=== PATIENT | female | born 1980 | race Caucasian/White ===

== ENCOUNTER 2024-05-10 09:38 | Outpatient (CLI) | payer BC, SELFPAY | END 2024-05-10 09:39 | disposition home or self-care (01) | LOC: LKVREF 09:39 | PROVIDERS: Visit Provider Physician Assistant | DX: N93.8 Other specified abnormal uterine and vaginal bleeding (principal) | CPT/HCPCS: 84443 ==

== ENCOUNTER 2024-05-18 09:38 | Outpatient (CLI) | payer BC, SELFPAY ==
--- NOTE | 2024-05-18 10:15 | CRLHL7_ITS ---
For Patients: As a result of the Century Cures Act, medical imaging exams and procedure reports are released immediately into your electronic medical record. You may view this report before your referring provider. If you have questions, please contact your health care provider. INDICATION: Abnormal uterine bleeding COMPARISON: none TECHNIQUE: 2D santiago scale and color Doppler images were acquired of the pelvis using a transabdominal and transvaginal approach. FINDINGS: Sonographic images demonstrate a normal size and smooth outer contour of the uterus. Uterus measures 7.7 cm in length by 4.1 cm in AP diameter by 5.1 cm in transverse dimension. Posterior uterine fibroid is present measuring 10 x 7 x 9 millimeters. The endometrial lining measures 17.9 mm in composite thickness. Hyperechoic structure associated with the endometrial measures 9 x 6 x 8 millimeters. The right ovary measures 3.1 x 1.9 x 1.7 cm in size and the left ovary measures 2.1 x 1.6 x 1.5 cm. The ovaries demonstrate normal arterial and venous blood flow on color Doppler analysis. There are no suspicious fluid collections within the cul-de-sac. Hypoechoic structure within the right ovary measures 1.4 x 1.3 x 1.6 cm. IMPRESSION: Endometrial thickness 17.9 millimeters. Possible endometrial polyp measuring 9 millimeters. Posterior uterine fibroid measures 1 cm. Hypoechoic structure within the right ovary measures 1.6 cm. Consider follow-up ultrasound in 6 months. Dictated by Heath Kee MD @ 05/18/2024 10:20:54 PM (Electronically Signed)
== END 2024-05-18 09:39 | disposition home or self-care (01) ==
PROVIDERS: Visit Provider Physician Assistant
DX: N93.8 Other specified abnormal uterine and vaginal bleeding (principal); R93.89 Abnormal findings on diagnostic imaging of other specified body structures; D25.9 Leiomyoma of uterus, unspecified
CPT/HCPCS: 76830; 76856

== ENCOUNTER 2024-06-17 06:01 | Day surgery (SDC) | payer BC, SELFPAY ==
[2024-06-17 06:32] VITALS: BP 118/65; PULSE 72; RESP 16; TEMP 37.2; O2SAT 100; BMI 22.5
[2024-06-17] MEDS: SODIUM CHLORIDE 0.9 % (FLUSH) 10 ML SYRINGE IVF (06:38)
[2024-06-17 06:48] LABS: Ur HCG Qualitative* Negative (Negative)
--- NOTE | 2024-06-17 07:27 | W.PM.H&PU ---
History & Physical Update History & Physical Update H&P Reviewed and patient assessed: No changes noted
[2024-06-17] MEDS: LIDOCAINE 1% MDV 20 ML INJECTION (07:30)
[2024-06-17 07:59] VITALS: BP 92/59; PULSE 76; RESP 12; TEMP 37.1; O2SAT 99
--- NOTE | 2024-06-17 08:01 | W.PM.GYNPROC ---
Procedure Note Date of procedure: 06/17/24 Will [facility] bill your pro fee for this procedure?: Yes Pre-op diagnosis: Menorrhagia Suspected endometrial polyp Post-op diagnosis: Menorrhagia Endometrial polyp Procedure: Hysteroscopy, polypectomy, dilation and curettage Anesthesia: MAC and local Complications: None Surgeon: Marbella Watkins MD Estimated blood loss (mL): 5 IV fluids (mL): 0 Urine Output (mL): 5 Pathology: specimen obtained, sent to pathology (endometrial curettings) Condition: stable Disposition: same day Findings: 1. On exam under anesthesia, vulva was normal in appearance, as was vagina and cervix. The uterus was of normal size and consistency, mobile, and slightly retroverted. There were no palpable adnexal masses. 2. Upon hysteroscopy, the endocervix was normal appearance. The endometrial cavity was normal in shape, and tubal ostia were normal in appearance. There was a polyp extending from the left lateral fundus approximately 1 cm in greatest dimension. Otherwise, the endometrium was thin and shaggy, consistent in appearance with menstrual endometrium. Saline deficit: 185 cc Procedure Description: Procedure in detail: Patient was taken to the operating room with IV running. She was positioned in dorsal lithotomy position with her legs fully supported in Yellofin stirrups. Monitored anesthesia care was administered. She was prepped and draped in the usual sterile fashion. Exam under anesthesia was performed for the above-noted findings. Speculum was inserted. Cervix visualized and grasped along the anterior lip with a single-tooth tenaculum. Paracervical block was performed with a total of 10 mL of 1% lidocaine. Cervix was serially dilated to accommodate the TRUCLEAR hysteroscope. This was assembled with saline inflow and outflow in place. The line was flushed of bubbles. The hysteroscope was advanced through the cervix into the endometrial cavity for the above noted findings. The tissue morcellator was then inserted through the operating channel. Window lock was performed. Under direct visualization, the endometrial cavity was circumferentially curetted with the tissue morcellator. The hysteroscope and morcellator were then removed from the uterus. Tenaculum was removed from the anterior lip of cervix. Hemostasis was noted. Patient tolerated procedure well. She was taken to recovery area in stable condition. Postoperative debrief was verbalized with OR staff, including a verification of pathology specimens to be sent as described above.
--- NOTE | 2024-06-17 08:01 | W.ANESCHARGE ---
Anesthesia Charges Start Date/Time Anesthesia Start Date: 06/17/24 Anesthesia Start Time: 07:19 Stop Date/Time Anesthesia Stop Date: 06/17/24 Anesthesia Stop Time: 08:02
[2024-06-17 08:15] VITALS: BP 100/36; PULSE 69; RESP 12; O2SAT 99
[2024-06-17 08:30] VITALS: BP 120/88; PULSE 75; RESP 14; O2SAT 97
[2024-06-17] MEDS: ACETAMINOPHEN 500 MG TABLET 1000 MG PO (08:36)
[2024-06-17 08:45] VITALS: BP 119/81; PULSE 73; RESP 14; O2SAT 98
--- NOTE | 2024-06-17 08:54 | W.ANESCHARGE ---
Anesthesia Charges Start Date/Time Anesthesia Start Date: 06/17/24 Anesthesia Start Time: 07:19 Stop Date/Time Anesthesia Stop Date: 06/17/24 Anesthesia Stop Time: 08:02
== END 2024-06-17 09:20 | disposition home or self-care (01) ==
PROVIDERS: Visit Provider Obstetrics & Gynecology
PROC: 0UDB8ZZ Extraction of Endometrium, Via Natural or Artificial Opening Endoscopic (ICD-10-PCS; CPT 58558; principal; 2024-06-17 07:15)
DX: N92.0 Excessive and frequent menstruation with regular cycle (principal); N84.0 Polyp of corpus uteri; N93.8 Other specified abnormal uterine and vaginal bleeding
CPT/HCPCS: 58558; 00952; 36415; 81025; 86850; 86900; 86901; 88305; J2003; A9270; C1782; J1100; J1885; J2250; J2405; J2704; J3010

== ENCOUNTER 2024-10-07 06:05 | Day surgery (SDC) | payer BC, SELFPAY ==
[2024-10-07] VITALS (19 sets, daily range): BP systolic 108–131; BP diastolic 62–85; PULSE 60–82; RESP 14–16; TEMP 36.6–37.3; O2SAT 95–100; BMI 20.3
[2024-10-07] MEDS: SODIUM CHLORIDE 0.9 % (FLUSH) 10 ML SYRINGE IVF (06:45)
[2024-10-07] MEDS: ACETAMINOPHEN 500 MG TABLET 1000 MG PO (06:45)
[2024-10-07] MEDS: SCOPOLAMINE 1 MG/3 DAY PATCH 1 PATCH TRANSDERMA (06:45)
[2024-10-07] MEDS: LACTATED RINGERS 1000 ML 1,000 ML 100 ML IV ×4 (06:45→11:15)
[2024-10-07] MEDS: GABAPENTIN 600 MG TABLET PO (06:45)
[2024-10-07 06:52] LABS: Hemoglobin* 11.7 gm/dL (12.0-16.0)
[2024-10-07 06:55] LABS: Ur HCG Qualitative* Negative (Negative)
[2024-10-07 07:12] LABS: Creatinine* 0.7 mg/dL (0.5-1.5); Est. Creatinine Clearance* 98.45; Estimated Glomerular Filt Rate 111 ml/min
[2024-10-07] MEDS: CEFAZOLIN 2 GM INJ IVP (07:30)
--- NOTE | 2024-10-07 07:59 | W.PM.NB ---
Nerve Block Nerve Block Time Seen by Provider: 07:30 Date Seen: 10/07/24 Type of block requested by surgeon for post-operative analgesia: TAP Side: bilateral Time out performed: Yes Verification of patient name: Yes Verification of date of : Yes Site marking: site marked Name of person performing procedure: Bogdan valdivia Assistants, if any: Rajinder James Continuous monitoring Was continuous monitoring of O2 sat, B/P, cardiac cath technologist, recorded every 15 minutes?: Yes Procedure Checklist: sterile prep, needles and gloves Ultrasound guided. Images saved: Yes Medications given in 5ml increments after negative aspiration: Marcaine %: 0.25 mL: 30 and Exparel mL: 10 Patient tolerated procedure well: Yes Block Charges Block Charge (with Pro Fee): TAP Bilateral Use of Ultrasound Machine for Block: Yes- US Guidance/pain block
--- NOTE | 2024-10-07 09:04 | P.ANES_ITS ---
Anesthesia Charges Start Date/Time Anesthesia Start Date: 10/07/24 Anesthesia Start Time: 07:17 Stop Date/Time Anesthesia Stop Date: 10/07/24 Anesthesia Stop Time: 10:12 Coding CPT Codes CPT Codes: ANESTH SURG LOWER ABDOMEN - 94661 ([id number]) P1 - NORMAL HEALTHY PATIENT, QK - OBSERVER GRAVITY PROSPECTING 2-4 CNCRNT ANES PROC, QX - ELECTRONIC INTELLIGENCE OFFICER SVSarah W/ MED DIRECTION
--- NOTE | 2024-10-07 09:04 | W.ANESCHARGE ---
Anesthesia Charges Start Date/Time Anesthesia Start Date: 10/07/24 Anesthesia Start Time: 07:17 Stop Date/Time Anesthesia Stop Date: 10/07/24 Anesthesia Stop Time: 10:12 Coding CPT Codes CPT Codes: ANESTH SURG LOWER ABDOMEN - 87295 ([id number]) P1 - NORMAL HEALTHY PATIENT, QK - WRAPPER OFF 2-4 CNCRNT ANES PROC, QX - PEARL DIVER SVSarah W/ MED DIRECTION
--- NOTE | 2024-10-07 09:12 | P.ANES_ITS ---
Anesthesia Charges Start Date/Time Anesthesia Start Date: 10/07/24 Anesthesia Start Time: 07:17 Stop Date/Time Anesthesia Stop Date: 10/07/24 Anesthesia Stop Time: 10:12 Coding CPT Codes CPT Codes: ANESTH SURG LOWER ABDOMEN - 35588 ([id number]) P1 - NORMAL HEALTHY PATIENT, QK - RN WOMEN SERVICES 2-4 CNCRNT ANES PROC, QX - BAND TIER SVSarah W/ MED DIRECTION
--- NOTE | 2024-10-07 09:12 | W.ANESCHARGE ---
Anesthesia Charges Start Date/Time Anesthesia Start Date: 10/07/24 Anesthesia Start Time: 07:17 Stop Date/Time Anesthesia Stop Date: 10/07/24 Anesthesia Stop Time: 10:12 Coding CPT Codes CPT Codes: ANESTH SURG LOWER ABDOMEN - 46568 ([id number]) P1 - NORMAL HEALTHY PATIENT, QK - RADIATION TECHNICIAN 2-4 CNCRNT ANES PROC, QX - CREATIVE SERVICES SPECIALIST SVSarah W/ MED DIRECTION
--- NOTE | 2024-10-07 11:41 | W.PM.H&PU ---
History & Physical Update History & Physical Update H&P Reviewed and patient assessed: No changes noted
--- NOTE | 2024-10-07 11:42 | P.GYNPRC_ITS ---
Procedure Note Date of procedure: 10/07/24 Will [facility] bill your pro fee for this procedure?: Yes Procedure Description: PREOPERATIVE DIAGNOSIS: Menorrhagia POSTOPERATIVE DIAGNOSIS: Same TITLE OF OPERATION: 1. Total laparoscopic hysterectomy with bilateral salpingectomy 2. Cystoscopy SURGEON: Marbella Watkins MD WESTERN TACK ASSEMBLY LINE WORKER: Teresa Hickman MD ANESTHESIA: General ESTIMATED BLOOD LOSS: 25 mL URINE OUTPUT: 100 mL FINDINGS: 1. Upon pelvic exam under anesthesia, the cervix and vagina were normal in appearance. Uterus was mobile and anteverted, of normal size and texture. There were no palpable adnexal masses. 2. Upon laparoscopy, survey of the upper abdomen revealed a normal appearance to the inferior edge of the liver and stomach. Bowels were grossly normal appearance, as was the appendix. Survey of the pelvis revealed normal appearance to the uterus. The left distal fallopian tube was adherent to the ovary, and the ovarian fossa, though free of adhesions, appeared irregular and scarred. Right tube tubes and bilateral ovaries were normal in appearance. The cul-de-sac and bladder reflection were normal in appearance. 3. Upon cystoscopy, performed after completion of hysterectomy, bilateral ureteral jets were noted and there were no abnormalities of the bladder mucosa. COMPLICATIONS: None PROCEDURE IN DETAIL: Patient was taken to the operating room with IV running. She received cefazolin in preoperative prophylaxis. She was positioned in dorsal lithotomy position with her legs fully supported in Yellofin stirrups. General anesthesia was administered. She was prepped and draped in the usual sterile fashion. Pelvic exam under anesthesia was performed for the above-noted findings. Speculum was inserted. Cervix visualized and grasped along its posterior lip with a single-tooth tenaculum. Cervix was dilated with Hegar dilators to accommodate the VCare uterine manipulator. A small-sized colpotomizer cup was selected. The tip of the uterine manipulator was inserted through the cervix into the uterine cavity and the balloon was inflated. The speculum was removed. The colpotomy cup was advanced, surrounding the cervix, and the proximal occluder was moved up along the shaft of the VCare and fixed in place. Melendez catheter was placed. Patient's legs were then placed in neutral position. Attention was turned to patient's abdomen. Infraumbilical area was infiltrated with a small amount of Marcaine. A 5 mm infraumbilical incision was made with a scalpel and carried down to the underlying layer of fascia with the hemostat. 5 mm camera was placed within the 5 mm Fios Kii trocar, and advanced under direct visualization through the anterior abdominal wall into the peritoneal cavity, while tenting up the anterior abdominal wall. The trocar was removed. The balloon was inflated, holding the port in place. Pneumoperitoneum was achieved. Survey of the abdomen and pelvis revealed the above-noted findings. Three additional port sites were created. The first was in the patient's left lower quadrant, just superomedial to the left ASIS. The second was a hand's breadth superior to and slightly medial to the first. The third was in the patient's right lower quadrant, just superomedial to the right ASIS. Initially, a 5 mm incision was made at each site, and after assuring that large vessels were out of harm's way, a 5 mm Fios Kii port was inserted at each site, under direct visualization and without complication. The balloon on each of the four ports was inflated, holding each in place. Later in the case, the port in the left lower quadrant was replaced with an 11 mm port. Attention was first turned to the left fallopian tube, which was divided from the mesosalpinx, using the LigaSure bipolar cautery device, proceeding laterally to medially, and the tube was amputated at the left uterine cornua. There was tubal fimbria adherent to the left ovary, which was further dissected off with the LigaSure device. This was removed through the port site and sent to pathology. This procedure was repeated on the patient's right side, and the right fallopian tube was also amputated at the cornua and removed from the patient's abdomen. This was also sent to pathology for further analysis. The left round ligament was cauterized and transected with the LigaSure device. The utero-ovarian ligament was cauterized and transected, and the remnants of the right broad ligament were cauterized and transected between these two structures. The bladder flap was created on the patient's left side, moving laterally to medially. The left uterine artery was cauterized with the Thunderbeat device. Using the colpotomizer cup as a guide, the peritoneum and underlying stroma was dissected off the anticipated site of colpotomy over the posterior vaginal fornix. Attention was then turned to the right side of the uterus, where the right round ligament was cauterized and transected with the Thunderbeat device. The right utero-ovarian ligament was cauterized and transected, and the remnants of the right round ligament were cauterized and transected between these two structures. The bladder flap was created on the patient's right side, and dissection was carried laterally to medially, meeting the dissection where it had left off from the patient's right side. The right uterine artery was cauterized and transected with the LigaSure device. The bladder reflection was moved well below the colpotomizer cup anteriorly. The left uterine artery was transected with the LigaSure. The vaginal fornix was then entered laterally with the monopolar paddle, using the colpotomizer cup as a guide. This device was moved along the circumference of the colpotomizer cup, until the uterus and cervix were freed from their attachments to the pelvis. The uterus was pulled into the patient's vagina, maintaining the pneumoperitoneum. The vaginal cuff was closed with a series of [id number] sutures of 0 Vicryl. These were placed and tied intracorporeally. During this process, the needle came off of the suture 2 separate times. The 1st time, this was grasped with the laparoscopic needle after school driver and guided through the patient's vagina, removed from the body. The 2nd time, it was removed through the left lower quadrant port. Hemostasis was noted. Ports were left in place but all instruments were removed and pneumoperitoneum was released. Patient's legs were placed back in lithotomy position. The uterus was removed from the vagina and was sent to pathology for further analysis. Vaginal exam was performed, showing an intact cuff. The Melendez catheter was removed from the bladder, and the cystoscope was assembled with saline inflow, outflow, and light cord in place. The patient was given IV sodium fluorescein prior to the cystoscopy. Cystoscope was advanced through the urethra into the bladder, and survey of the mucosa revealed a normal appearance. The bladder dome was intact. Bilateral ureteral jets were noted. Cystoscope was removed and Melendez catheter replaced. Patient's legs were again placed in neutral position. Insufflator was reattached to the port and pneumoperitoneum again achieved. Survey of the pelvis revealed some oozing along the scarred remnant of the left broad ligament adjacent to the previous location of the left tube. These were addressed with the LigaSure device. Hemostasis was then noted. The 11 mm Fios Kii port in the left lower quadrant was removed after balloon on the port was deflated. The fascia of this port site was closed with [id number] suture of 0 Vicryl. Procedure was deemed complete. The balloons of all remaining port sites were deflated, and all ports were removed after pneumoperitoneum was released. The skin of each port site was closed in a subcuticular fashion with 4 0 Monocryl. Surgical glue was applied above this. Patient tolerated procedure well and was taken to recovery area in stable condition.
--- NOTE | 2024-10-07 13:05 | SUR.PHASEII ---
Instilled 300c sterile normal saline fluid into bladder at 1258, removed catheter after instillation of fluid for bladder challenge as ordered.
--- NOTE | 2024-10-07 14:03 | SUR.PHASEII ---
pt up to bedside commode, voided 225cc. Pt states feeling discomfort but not pain. Pt reports nausea when sitting up, aromatherapy patch applied.
--- NOTE | 2024-10-07 14:06 | P.PCN_ITS ---
Procedure Note Time Seen by Provider: 11:00 Date Seen: 10/07/24 Provider Contact Time: 14:06 Date of procedure: 10/07/24 Will [facility] bill your pro fee for this procedure?: Yes Procedure: accounts payable assistant op note: Preoperative diagnosis: 43-year-old with menorrhagia Postoperative diagnosis: Same Procedure: Total laparoscopic hysterectomy, bilateral salpingectomy and diagnostic cystoscopy Operative note: I was asked to assist Dr. Marbella Watkins with the patient's surgery. I aided in dissection, visualization, and obtaining hemostasis. Please see Dr. Watkins's note for complete details. Anesthesia: GETA and local Pathology: specimen obtained, sent to pathology Condition: stable Disposition: floor
--- NOTE | 2024-10-07 14:54 | SUR.PHASEII ---
Pt ambulated around unit x1, Ambulated to BR. Tolerated activity without difficulty.
--- NOTE | 2024-10-07 16:15 | SUR.PHASEII ---
pt ambulated to bathroom by self. Tolerated activity without difficulty. denies pain. Reviewed instructions, all questions answered. Wheelchair out to car with RN, friend is her ride home.
== END 2024-10-07 16:05 | disposition home or self-care (01) ==
LOC: OR 06:06
PROVIDERS: Visit Provider Obstetrics & Gynecology
PROC: 0UT94ZZ Resection of Uterus, Percutaneous Endoscopic Approach (ICD-10-PCS; CPT 58571; principal; 2024-10-07 07:15)
DX: N92.0 Excessive and frequent menstruation with regular cycle (principal); G89.18 Other acute postprocedural pain; D25.2 Subserosal leiomyoma of uterus
CPT/HCPCS: 58571; 00840; 36415; 64488; 76942; 81025; 82565; 85018; 86850; 86900; 86901; 88307; A4314; A9270; J0330; J0665; J0666; J0690; J1100; J1171; J1885; J2250; J2371; J2405; J2704; J3010; J3490; J7120